=== PATIENT | female | born 1995 | race Hispanic/Latino ===

== ENCOUNTER 2020-12-27 13:46 | Observation (INO) | payer OTHER, SELFPAY ==
[~2020-12-27] VITALS: Ht 172.7 cm; Wt 88.0 kg
[2020-12-27 13:49] VITALS: BP 112/71
[2020-12-27] MEDS ORDERED: ALBUTEROL INHALER 90MCG/INH IH PRN (14:00)
[2020-12-27] MEDS ORDERED: ACETAMINOPHEN WITH CODEINE 1 TAB TAB PO ONE (14:00)
[2020-12-27] MEDS ORDERED: ACETAMINOPHEN WITH CODEINE 1 TAB TAB ONE (14:03)
[2020-12-27 14:06] LABS: HEMATOCRIT 32.8 % (42-54); MEAN CORPUSCULAR HEMOGLOBIN 23.4 pg (27.0-33.0); MEAN CORPUSCULAR HGB CONC 30.5 g/dL (32.0-36.0); MEAN CORPUSCULAR VOLUME 76.6 fL (79-99); MONOCYTES % (AUTO) 6.3 % (3.0-13.0); NEUTROPHILS % (AUTO) 67.4 % (40.0-77.0); PLATELET COUNT (AUTO) 290 K/uL (130-400); RED BLOOD CELL COUNT(AUTO) 4.28 MIL/uL (4.50-6.20); RED CELL DISTRIBUTION WIDTH 16.9 % (11.0-15.5)
[2020-12-27 14:11] LABS: ABG BASE EXCESS -1.1 mmol/L (-2.0-3.0); ABG HCO3 22.4 mmol/L (21.0-28.0); ABG OXYGEN SATURATION 87.6 % (95.0-99.0); ABG PCO2 34 mmHg (32-45)
[2020-12-27 14:13] LABS: CREATININE 0.7 mg/dL (0.5-1.5); POTASSIUM 3.5 mmol/L (3.5-5.1)
[2020-12-27 14:18] LABS: ALBUMIN 3.3 g/dL (3.5-5.0); BILIRUBIN,TOTAL 0.3 mg/dL (0.2-1.0); CRP QUANTITATIVE 79.7 mg/L (0.00-9.0); TOTAL PROTEIN, SERUM 7.5 g/dL (6.0-8.3)
[2020-12-27 14:19] LABS: APPEARANCE,URINE Turbid (CLEAR); BILIRUBIN,URINE Small (NEGATIVE); COLOR,URINE Dark Yellow (YELLOW); GLUCOSE, URINE (UA) Negative (NEGATIVE); KETONES,URINE 15 mg/dL (NEGATIVE); LEUKOCYTE ESTERASE ,URINE Moderate (NEGATIVE); NITRATE,URINE Negative (NEGATIVE); OCCULT BLOOD,URINE Large (NEGATIVE); PROTEIN,URINE POS 2+ mg/dL (NEGATIVE)
[2020-12-27 14:33] LABS: B-TYPE NATRIURETIC PEPTIDE 12 pg/mL (0-100)
[2020-12-27 14:40] LABS: BACTERIA,URINE Many /HPF (None Seen); MUCUS,URINE Moderate LPF (None Seen); SQUAMOUS EPITHELIAL CELL,UR Moderate /HPF (0-2)
[2020-12-27 14:46] LABS: BAND NEUTROPHILS % (MANUAL) 1 % (0-2); LYMPHOCYTES % (MANUAL) 28 % (22-44); MONOCYTES % (MANUAL) 9 % (2-9); SEGMENTED NEUTROPHILS % 62 % (40-70)
[2020-12-27 14:47] LABS: MAN.DIFF COMMENT-IMPRESSION MANUAL DIFFERENTIAL
[2020-12-27 14:48] LABS: PLATELET MORPHOLOGY COMMENT ADEQUATE
[2020-12-27] MEDS ORDERED: CEFTRIAXONE 1G VIAL IVP ONE (15:00)
[2020-12-27] MEDS ORDERED: CEFTRIAXONE 1G VIAL ONE ×2 (15:10→18:34)
[2020-12-27 15:48] VITALS: BP 108/44
[2020-12-27] MEDS ORDERED: ERGOCALCIFEROL (VITAMIN D2) 50,000 UNIT CAPSULE PO ONE ×2 (16:30→18:30)
[2020-12-27] MEDS ORDERED: ACETAMINOPHEN 325 MG TAB PO PRN ×2 (16:30)
[2020-12-27] MEDS ORDERED: LACTULOSE 20 GM/30 ML UDCUP PO PRN (16:30)
[2020-12-27] MEDS ORDERED: ONDANSETRON 4MG INJ IV PRN (16:30)
[2020-12-27] MEDS ORDERED: CEFTRIAXONE 1G VIAL IVP SCH (17:00)
[2020-12-27] MEDS: CEFTRIAXONE 2GM VIAL IVP SCH (18:44)
[2020-12-27] MEDS: DEXAMETHASONE SOD PHOSPHATE 4 MG/ML 1ML VIAL IVP SCH (18:44)
[2020-12-27] MEDS: DOXYCYCLINE 100MG+NS 250ML 250 ML IV SCH (18:44)
[2020-12-27 20:01] VITALS: BP 107/63
[2020-12-27] MEDS: BENZONATATE 100 MG CAPSULE PO SCH (21:24)
[2020-12-27] MEDS: FAMOTIDINE 20MG TAB PO SCH (21:24)
[2020-12-27 21:58] VITALS: BP 111/59
[2020-12-27 23:10] VITALS: BP 105/54
[2020-12-28 01:46] VITALS: BP 115/62
[2020-12-28 03:50] VITALS: BP 102/52
[2020-12-28] MEDS: DOXYCYCLINE 100MG+NS 250ML 250 ML IV SCH ×2 (05:34→15:04)
[2020-12-28 07:22] LABS: HEMATOCRIT 31.5 % (36-48); LYMPHOCYTES % (AUTO) 30.5 % (21.0-51.0); MEAN CORPUSCULAR HEMOGLOBIN 23.1 pg (27.0-33.0); MEAN CORPUSCULAR HGB CONC 30.5 g/dL (32.0-36.0); MEAN CORPUSCULAR VOLUME 75.9 fL (79-99); MONOCYTES % (AUTO) 7.8 % (3.0-13.0); NEUTROPHILS % (AUTO) 61.7 % (40.0-77.0); PLATELET COUNT (AUTO) 314 K/uL (130-400); RED BLOOD CELL COUNT(AUTO) 4.15 MIL/uL (4.00-5.50); RED CELL DISTRIBUTION WIDTH 16.7 % (11.0-15.5); WHITE BLOOD COUNT (AUTO) 1.3 K/uL (4.8-10.8)
[2020-12-28 07:43] VITALS: BP 120/75
[2020-12-28 07:43] LABS: BILIRUBIN,TOTAL 0.3 mg/dL (0.2-1.0); CREATININE 0.6 mg/dL (0.5-1.5); CRP QUANTITATIVE 67.2 mg/L (0.00-9.0); POTASSIUM 3.7 mmol/L (3.5-5.1); TOTAL PROTEIN, SERUM 7.8 g/dL (6.0-8.3)
[2020-12-28] MEDS ORDERED: ENOXAPARIN SODIUM 40 MG/0.4 ML SYRINGE SQ SCH (09:00)
[2020-12-28] MEDS: ASCORBIC ACID 500 MG TAB PO SCH (09:33)
[2020-12-28] MEDS: ZINC SULFATE 220 CAPSULE PO SCH (09:33)
[2020-12-28] MEDS: FAMOTIDINE 20MG TAB PO SCH ×2 (09:33→20:54)
[2020-12-28] MEDS: BENZONATATE 100 MG CAPSULE PO SCH ×3 (09:33→20:54)
[2020-12-28] MEDS: ENOXAPARIN SODIUM 40 MG/0.4 ML SYRINGE SQ SCH (09:36)
[2020-12-28 11:46] VITALS: BP 113/60
[2020-12-28] MEDS ORDERED: 0.9% NACL 250ML 250 ML ONE (14:53)
[2020-12-28] MEDS: DEXAMETHASONE SOD PHOSPHATE 4 MG/ML 1ML VIAL IVP SCH (15:04)
[2020-12-28 16:11] VITALS: BP 107/58
[2020-12-28] MEDS: CEFTRIAXONE 2GM VIAL IVP SCH (17:42)
[2020-12-28 19:48] VITALS: BP 105/48
[2020-12-29 00:04] VITALS: BP 115/51
[2020-12-29] MEDS: DOXYCYCLINE 100MG+NS 250ML 250 ML IV SCH (03:40)
[2020-12-29 04:17] VITALS: BP 107/67
[2020-12-29 04:19] LABS: HEMATOCRIT 31.9 % (36-48); LYMPHOCYTES % (AUTO) 25.3 % (21.0-51.0); MEAN CORPUSCULAR HEMOGLOBIN 23.3 pg (27.0-33.0); MEAN CORPUSCULAR HGB CONC 30.4 g/dL (32.0-36.0); MEAN CORPUSCULAR VOLUME 76.5 fL (79-99); MONOCYTES % (AUTO) 7.4 % (3.0-13.0); NEUTROPHILS % (AUTO) 66.5 % (40.0-77.0); PLATELET COUNT (AUTO) 350 K/uL (130-400); RED BLOOD CELL COUNT(AUTO) 4.17 MIL/uL (4.00-5.50); RED CELL DISTRIBUTION WIDTH 16.7 % (11.0-15.5); WHITE BLOOD COUNT (AUTO) 2.6 K/uL (4.8-10.8)
[2020-12-29 04:37] LABS: ALBUMIN 2.9 g/dL (3.5-5.0); BILIRUBIN,TOTAL 0.2 mg/dL (0.2-1.0); CREATININE 0.5 mg/dL (0.5-1.5); CRP QUANTITATIVE 29.5 mg/L (0.00-9.0); POTASSIUM 3.9 mmol/L (3.5-5.1); TOTAL PROTEIN, SERUM 7.4 g/dL (6.0-8.3)
[2020-12-29 04:45] LABS: BAND NEUTROPHILS % (MANUAL) 7 % (0-2); LYMPHOCYTES % (MANUAL) 20 % (22-44); MONOCYTES % (MANUAL) 6 % (2-9); REACTIVE LYMPHOCYTES 3 % (0-0); SEGMENTED NEUTROPHILS % 64 % (40-70)
[2020-12-29 04:46] LABS: MAN.DIFF COMMENT-IMPRESSION MANUAL DIFFERENTIAL; PLATELET MORPHOLOGY COMMENT ADEQUATE
[2020-12-29 07:53] VITALS: BP 110/52
[2020-12-29] MEDS ORDERED: DOXYCYCLINE 100MG+NS 250ML 250 ML IV SCH (09:00)
[2020-12-29] MEDS: ASCORBIC ACID 500 MG TAB PO SCH (09:08)
[2020-12-29] MEDS: BENZONATATE 100 MG CAPSULE PO SCH ×2 (09:08→14:29)
[2020-12-29] MEDS: ENOXAPARIN SODIUM 40 MG/0.4 ML SYRINGE SQ SCH (09:08)
[2020-12-29] MEDS: FAMOTIDINE 20MG TAB PO SCH (09:08)
[2020-12-29] MEDS: ZINC SULFATE 220 CAPSULE PO SCH (09:08)
[2020-12-29 11:42] VITALS: BP 98/55
[2020-12-29] MEDS ORDERED: ZINC220C6 PO (13:57)
[2020-12-29] MEDS ORDERED: DEXA4 PO (13:57)
[2020-12-29] MEDS ORDERED: DOXY100C5 PO (13:57)
[2020-12-29] MEDS ORDERED: ASCO500T20 PO (13:57)
[2020-12-29] MEDS ORDERED: ASPI-1197 PO (13:57)
[2020-12-29 16:11] VITALS: BP 100/60
== END 2020-12-29 15:30 | disposition home or self-care (01) ==
LOC: EDH 13:46 → EDSEX 13:46 → EDHIP 13:47 → INTOOBSV 13:47 → 2AH 12-28 01:14
PROVIDERS: ADMIT Internal Medicine; ATTEND Internal Medicine
DX: U07.1 COVID-19 (principal); J12.82 Pneumonia due to coronavirus disease 2019; I10 Essential (primary) hypertension; E11.9 Type 2 diabetes mellitus without complications; E66.9 Obesity, unspecified; D68.59 Other primary thrombophilia; N39.0 Urinary tract infection, site not specified; E78.5 Hyperlipidemia, unspecified; R09.02 Hypoxemia; Z79.82 Long term (current) use of aspirin; Z68.29 Body mass index [BMI] 29.0-29.9, adult
CPT/HCPCS: 36415 ×3; 36600; 71045; 80053 ×3; 81001; 82728 ×3; 82803; 82948; 83605; 83615 ×3; 83880; 84145; 84484; 84703; 85025 ×3; 85060; 85378 ×3; 86140 ×3; 87040 ×2; 87088; 87635; 87804 ×2; 87880; 93005; 94760 ×2; 96365; 96366 ×3; 96372 ×2; 96375; 96376; 99285; C9803; G0378 ×46; J0696 ×3; J1100 ×2; J1650 ×2; J3490 ×4; J7050

== ENCOUNTER 2024-10-19 17:47 | Emergency (ER) | payer SELFPAY ==
[~2024-10-19] VITALS: Ht 172.7 cm; Wt 122.5 kg
[~2024-10-19 17:47] MED LIST: ASCO500T20 PO; ASPI-1197 PO; DEXA4 PO; DOXY100C5 PO; ZINC220C6 PO
--- NOTE | 2024-10-19 18:15 | ERN ---
ED Note History of Present Illness Stated Complaint: HEADACHE,FEVER,BODY ACHES,SWEATS Chief Complaint: Headache Time Seen by MD: 17:49 Time Seen by Midlevel: 17:49 Dictation: The 29-year-old female with no medical history who presents to the emergency department with multiple complaints. Patient reports that Wednesday he started with a nontraumatic right-sided headache associated with fever, weakness, body aches, shortness of breath and chest tightness. Patient denies any cough or nasal congestion but reports family member with a similar flu-like symptoms. Allergies: Coded Allergies: No Known Allergies (Unverified Allergy, Unknown, 12/27/20) Home Meds Active Scripts Aspirin (Aspirin) 81 Mg Tab.chew, 81 MG PO DAILY for 10 Days, #10 TAB.CHEW Prov:LARRY CHAU NP 12/29/20 Dexamethasone (Decadron) 4 Mg Tab, 4 MG PO DAILY for 5 Days, #5 TAB Prov:LARRY CHAU NP 12/29/20 Doxycycline Hyclate (Doxycycline Hyclate) 100 Mg Capsule, 100 MG PO BID for 5 Days, #10 CAP Prov:LARRY CHAU NP 12/29/20 Ascorbic Acid (Vitamin C) 500 Mg Tablet, 500 MG PO DAILY for 15 Days, #15 TAB Prov:LARRY CHAU NP 12/29/20 Zinc Sulfate (Zinc Sulfate 220 Cap) 220 Mg Capsule, 220 MG PO DAILY for 10 Days, #10 CAP Prov:LARRY CHAU NP 12/29/20 Past Medical History Past Medical History: Asthma Additional Past Medical Hx: Obese Surgical History: None RN Note Reviewed/Agreed w/PFSH: Yes Review of System Dictation Constitutional: Negative for chills, and weight loss positive for fever Eyes: Negative for injury, pain,redness, and discharge ENT: Negative for injury,pain or swelling Cardiovascular: Negative for chest pain, palpitations, and edema Respiratory: Negative for cough, and wheezing, positive for shortness of breath Abdomen/GI: Negative for abdominal pain,vomiting, diarrhea, and constipation positive for nausea Back: Negative for injury and pain : Negative for injury, bleeding and discharge MS/Extremity: Negative for injury and deformity Skin: Negative for rash, and discoloration Neuro: Negative for headache, numbness, tingling, and seizure positive for weakness Psych: Negative for suicide ideation, homicidal ideation, and hallucinations Initial Vital Sign VS Vital Signs Date Time Temp Pulse Resp B/P (MAP) Pulse Ox O2 Delivery O2 Flow Rate FiO2 10/19/24 17:53 98.1 124 16 119/82 98 Room Air 0 10/19/24 17:53 21 Physical Exam Dictation Vital Signs reviewed General Appearance: Alert, oriented x 3, mildly distress, well developed, no urished. Head and Face: non-traumatic. Eyes: PERRL, pink conjunctivas, eyelid no trauma, anterior chamber with arcus senilis. Ears: Pinnas intact and no signs of trauma or erythema ear canals clear and no discharge TM no erythema Nose: No discharge, no bleeding. Oropharynx: Mouth normal, tongue pink. pharynx clear,no erythema, tonsils no exudates, no abscesses noted, mucous me mbrane moist Neck: Supple, non-tender, no thyromegaly, no masses, no JVD, no bruits Breast:Deferred Chest:No tenderness, no crepitus, no paradoxical movement, no retractions Lungs:Clear, well-ventilated, symmetric, no rales, no wheezing, no rhonchi, no stridor, good breath sounds bilaterally Heart: Regular rate, regular rhythm, no murmur, no gallops Vascular: no peripheral edema, Abdomen: Soft, positive bowel sounds, nondistended, no guarding, nontender, no rebound, no masses no hepatomegaly, no splenomegaly, no Bird's sign, no hernias. Rectal: Deferred Genital: Deferred Neurological: Normal speech, motor function intact, sensory function intact ,upper extremities equal in strength, lower extremities equal in strenght. Musculoskeletal: Neck nontender, full range of motion, back nontender, full range of motion, Extremities: nontender, full range of motion Skin: Color pink, dry, no turgor, no rash, no lacerations, no abrasions, no contusions. Lymphatic: Deferred Results (Laboratory/Radiology) Laboratory/Radiology Laboratory Tests Test 10/19/24 18:16 10/19/24 18:40 10/19/24 19:52 White Blood Count 2.7 K/uL (4.8-10.8) L Red Blood Count 4.37 MIL/uL (4.00-5.50) Hemoglobin 11.1 g/dL (12.0-16.0) L Hematocrit 33.8 % (36-48) L Mean Corpuscular Volume 77.3 fL (79-99) L Mean Corpuscular Hemoglobin 25.4 pg (27.0-33.0) L Mean Corpuscular Hemoglobin Concent 32.8 g/dL (32.0-36.0) Red Cell Distribution Width 15.8 % (11.0-15.5) H Platelet Count 180 K/uL (130-400) Mean Platelet Volume 9.1 fL (7.5-10.5) Immature Granulocyte % (Auto) 0.4 % (0-1) Neutrophils (%) (Auto) 68.5 % (40.0-77.0) Lymphocytes (%) (Auto) 27.0 % (21.0-51.0) Monocytes (%) (Auto) 3.7 % (3.0-13.0) Eosinophils (%) (Auto) 0.0 % (0.0-8.0) Basophils (%) (Auto) 0.4 % (0.0-5.0) Neutrophils # (Auto) 1.9 K/uL (1.8-7.7) Lymphocytes # (Auto) 0.7 K/uL (1.0-4.8) L Monocytes # (Auto) 0.1 K/uL (0.1-1.0) Eosinophils # (Auto) 0.00 K/uL (0.00-0.70) Basophils # (Auto) 0.01 K/uL (0.00-0.20) Absolute Immature Granulocyte (auto 0.01 K/uL (0-1) Segmented Neutrophils % 38 % (40-70) L Band Neutrophils % 34 % (0-2) H Lymphocytes % (Manual) 22 % (22-44) Monocytes % (Manual) 4 % (2-9) Nucleated Red Blood Cells 0.0 % (0.0-0.19) Differential Comment MANUAL DIFFERENTIAL Reactive Lymphocytes 2 % (0-0) H White Cell Morphology Comment IMMATURE GRAN 1+ Platelet Morphology Comment ADEQUATE Red Blood Cell Morphology ANISO 1+ Sodium Level 135 mmol/L (136-145) L Potassium Level 3.4 mmol/L (3.5-5.1) L Chloride Level 101 mmol/L (101-111) Carbon Dioxide Level 29 mmol/L (21-32) Blood Urea Nitrogen 8 mg/dL (7-18) Creatinine 0.6 mg/dL (0.5-1.0) Glomerular Filtration Rate Calc 125 mL/min (>90) Random Glucose 130 mg/dL (70-105) H Total Calcium 8.6 mg/dL (8.5-10.1) Magnesium Level 2.10 mg/dL (1.80-2.40) Total Creatine Kinase 65 U/L (21-232) Troponin I High Sensitivity 5 ng/L (4-50) B-Type Natriuretic Peptide 9 pg/mL (0-100) Influenza Type A Antigen Negative For Type A Influenza Type B Antigen Negative For Type B SARS-CoV-2 Antigen (Rapid) PRESUMPTIVE NEGATIVE Group A Streptococcus Rapid negative (NEGATIVE) Urine Color YELLOW (YELLOW) Urine Appearance CLOUDY (CLEAR) H Urine pH 5.5 (5.0-8.0) Urine Specific [place] 1.020 (1.001-1.031) Urine Protein 30 mg/dL (NEGATIVE) H Urine Glucose (UA) NEGATIVE mg/dL (NEGATIVE) Urine Ketones NEGATIVE mg/dL (NEGATIVE) Urine Occult Blood SMALL (NEGATIVE) H Urine Nitrate NEGATIVE (NEGATIVE) Urine Bilirubin NEGATIVE mg/dL (NEGATIVE) Urine Urobilinogen 2.0 mg/dL (0.2-1.0) H Urine Leukocyte Esterase 75 Lisa/uL (NEGATIVE) H Urine RBC 2-5 /HPF (0-1) H Urine WBC 6-10 /HPF (0-1) H Urine Squamous Epithelial Cells MOD /HPF (0-2) Urine Bacteria RARE /HPF (None Seen) Urine HCG, Qualitative NEGATIVE (NEGATIVE) REASON: right side headache, nausea ORDERING PHYSICIAN: SENA JOHN PROCEDURE: HEAD WO - CT HEAD/BRAIN W/O CONTRAST Exam Type: CT HEAD/BRAIN W/O CONTRAST Clinical Information: right side headache, nausea Comparison: None CT Dose Index (CTDI): 57.33 mGy Dose Length Product (DLP): 956.79 total mGy-cm Findings: The examination is unremarkable. Dorado-white matter junction is preserved. No intra or extra axial lesions or fluid collections are seen. Specifically, dorado and white matter are normal in signal characteristics with normal caliber of ventricles and periventricular cisterns with no evidence of intra or or extra-axial hemorrhage, lacunar infarct, or major territorial infarct, mass, or other abnormality. There are no infarcts. There are no hemorrhages. Periventricular white matter locations are preserved. The orbital contents and structures of the posterior fossa are intact. Impression: Normal CT of the head. This study was performed using dose reduction techniques to include automated exposure control and/or adjustment of the mA and/or kV according to patient size. REASON: sob ORDERING PHYSICIAN: SENA JOHN PROCEDURE: CXR1VW - CHEST 1VW Exam Type: CHEST 1VW Clinical Information: sob Comparison: None Findings: The lungs are clear of infiltrates. The heart is normal in size. The bony and soft tissue structures of the chest are unremarkable. Impression: Clear lungs. Labs Reviewed?: Yes EKG: (+) rhythm EKG Comment: Date:10/19/2024 Time:1800 Ventricular rate:114 [place] interval:147 QRS duration:99 QT/QTc:341/471 EKG interpretation: Sinus tachycardia Reviewed by ED Attending no STEMI ED Course ED Course Orders Procedure Category Date Status Time 12 Lead Ekg Tracing- EKG 10/19/24 Complete Technical 18:01 Covid19 (Sars Antigen LAB 10/19/24 Complete Rapid) 18:08 Influenza Type A & B, LAB 10/19/24 Complete Rapid 18:08 Rapid (Group A Strep) LAB 10/19/24 Complete 18:08 Cbc With Differential LAB 10/19/24 Complete 18:08 B-Type Natriuretic LAB 10/19/24 Complete Peptide 18:08 Chest 1vw RAD 10/19/24 Resulted 18:08 0.9%Nacl 1000ml (Ns PHA 10/19/24 Complete 1000ml) 18:30 Magnesium LAB 10/19/24 Complete 18:08 Creatine Kinase, Total LAB 10/19/24 Complete 18:08 Troponin I High LAB 10/19/24 Complete Sensitivity 18:08 Urinalysis Profile LAB 10/19/24 Complete 18:08 Basic Metabolic Panel LAB 10/19/24 Complete 18:08 ,Urine Test LAB 10/19/24 Complete 18:08 Acetaminophen 500mg PHA 10/19/24 Complete Tab (Tylenol 500mg T 18:30 Manual Differential LAB 10/19/24 Complete 18:16 Potassium Bicarb/Cit PHA 10/19/24 Complete Ac 25meq (K-Lyte Ta 20:00 Culture Urine SARAH 10/19/24 In Process 20:07 Ct Head/Brain W/O CT 10/19/24 Resulted Contrast 20:08 Metoclopramide 10 PHA 10/19/24 Complete Mg/2 Ml Vial (Reglan 1 20:30 Diphenhydramine Hcl PHA 10/19/24 Complete (Benadryl Inj) 20:30 Ceftriaxone 1g Vial PHA 10/19/24 Complete (Rocephine 1g Inj) 20:30 Current Medications Medications (Trade) Dose Ordered Sig/Nayla Route PRN Reason Start Time Stop Time Status Last Admin Dose Admin Acetaminophen (TYLenol 500MG TAB) 1,000 mg ONCE ONCE PO 10/19/24 18:30 10/19/24 18:32 DC 10/19/24 18:52 Ceftriaxone Sodium (ROCEphine 1G INJ) 1 gm ONCE ONCE IVPB 10/19/24 20:30 10/19/24 20:31 DC 10/19/24 20:59 Diphenhydramine HCl (BENAdryl INJ) 25 mg ONCE ONCE IV 10/19/24 20:30 10/19/24 20:31 DC 10/19/24 20:59 Metoclopramide HCl (regLAN 10MG IV) 10 mg ONCE ONCE IVP 10/19/24 20:30 10/19/24 20:31 DC 10/19/24 20:59 Potassium Bicarbonate (K-Lyte Tablet Eff 25 Meq Tablet.eff) 25 meq ONCE ONCE PO 10/19/24 20:00 10/19/24 20:01 DC 10/19/24 19:54 Sodium Chloride 1,000 ml @ 0 mls/hr ONCE ONCE IV 10/19/24 18:30 10/19/24 18:32 DC 10/19/24 18:44 Vital Signs Date Time Temp Pulse Resp B/P (MAP) Pulse Ox O2 Delivery O2 Flow Rate FiO2 10/19/24 18:53 98 18 98 Room Air* 0 21 10/19/24 17:53 98.1 124 16 119/82 98 Room Air* 0 21 10/19/24 17:53 98.1 124 16 119/82 98 Room Air 0 Medical Decision Making MDM The 29-year-old female with no medical history who presents to the emergency department with multiple complaints. Patient reports that Wednesday he started with a nontraumatic right-sided headache associated with fever, weakness, body aches, shortness of breath and chest tightness. Patient denies any cough or nasal congestion but reports family member with a similar flu-like symptoms. CBC showed no leukocytosis, mild microcytic anemia, chemistry showed mild hyponatremia, hypokalemia, negative troponin, negative BNP, urinalysis positive for leukocyte esterase, serology negative, chest x-ray showed no acute infiltrates, CT head showed no acute pathology. On arrival patient was in mild distress, diaphoretic and tachycardic. On reassessment patient is in no acute distress, heart rate is now in the 90s, patient continues neurologically intact, nontender abdomen to palpation. Reports headache improved. Patient with stable vital signs. Nontoxic appearance. Labs and imaging discussed with the patient who agrees to follow up with primary doctor. Differential diagnosis: Pneumonia, sepsis, upper respiratory infection, pneumothorax, URI Need for hospitalization: Patient does not meet criteria for hospitalization. There are no social concerns with this patient. DX & DISP Disposition: Discharge Departure Impression: Primary Impression: Headache Additional Impressions: Mild dehydration, UTI (urinary tract infection), Viral illness Condition: Stable Scripts Nitrofurantoin Monohyd/M-Cryst (Macrobid 100 mg Capsule) 100 Mg Capsule 1 CAP PO BID for 5 Days, #10 CAP 0 Refills Prov: SENA JOHN 10/19/24 Additional Instructions: Please follow up with the primary doctor in 1-2 days. Take medications as prescribed. If symptoms worsen please return to ER. FOLLOW-UP WITH PRIMARY CARE PROVIDER IN 1 TO 2 DAYS. TAKE MEDICATIONS DIRECTED HERE IN THE EMERGENCY ROOM. OKAY TO CONTINUE HOME MEDICATIONS UNLESS OTHERWISE DISCUSSED DURING YOUR VISIT IN THE EMERGENCY ROOM TODAY. RETURN TO YOUR NEAREST EMERGENCY ROOM IF SYMPTOMS WORSEN OR IF THERE IS NO IMPROVEMENT. CALL 911 IF YOU NEED IMMEDIATE ASSISTANCE. TAKE TYLENOL OR MOTRIN [id number] NEEDED AND IF NO CONTRAINDICATIONS ARE PRESENT. INCREASE ORAL HYDRATION. A WOUND CULTURE OR URINE CULTURE WAS ORDERED HERE IN THE EMERGENCY ROOM DEPARTMENT PLEASE FOLLOW-UP WITH PRIMARY CARE PROVIDER AND ADVISE THEM TO GET REPEAT PORTS FROM OUR FACILITY. IF YOU HAD ANY PILI WRAP/SPLINTS THAT WERE APPLIED HERE, PLEASE DO NOT REMOVE THEM UNTIL YOU SEE YOUR PRIMARY CARE OR SPECIALTY. Referrals: SELF,REFERRAL (PCP) Time of Disposition: 21:07 I have reviewed the case, and I agree with, Diagnosis and Plan SENA JOHN Oct 19, 2024 18:15
--- NOTE | 2024-10-19 18:18 | EKG ---
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
[2024-10-19 18:21] LABS: BASOPHILS # (AUTO) 0.01 K/uL (0.00-0.20); BASOPHILS % (AUTO) 0.4 % (0.0-5.0); HEMATOCRIT 33.8 % (36-48); IMMATURE GRANULOCYTE ABSOLUTE 0.01 K/uL (0-1); LYMPHOCYTES # (AUTO) 0.7 K/uL (1.0-4.8); MEAN CORPUSCULAR HEMOGLOBIN 25.4 pg (27.0-33.0); MEAN CORPUSCULAR HGB CONC 32.8 g/dL (32.0-36.0); MEAN CORPUSCULAR VOLUME 77.3 fL (79-99); MONOCYTES # (AUTO) 0.1 K/uL (0.1-1.0); MONOCYTES % (AUTO) 3.7 % (3.0-13.0); NEUTROPHILS # (AUTO) 1.9 K/uL (1.8-7.7); NEUTROPHILS % (AUTO) 68.5 % (40.0-77.0); PLATELET COUNT (AUTO) 180 K/uL (130-400); RED BLOOD CELL COUNT(AUTO) 4.37 MIL/uL (4.00-5.50); RED CELL DISTRIBUTION WIDTH 15.8 % (11.0-15.5); WHITE BLOOD COUNT (AUTO) 2.7 K/uL (4.8-10.8)
[2024-10-19 18:31] LABS: CREATININE 0.6 mg/dL (0.5-1.0); POTASSIUM 3.4 mmol/L (3.5-5.1)
[2024-10-19 18:40] LABS: MAGNESIUM 2.1 mg/dL (1.80-2.40)
[2024-10-19 18:43] LABS: B-TYPE NATRIURETIC PEPTIDE 9 pg/mL (0-100)
[2024-10-19] MEDS: 0.9%NACL 1000ML 1,000 ML IV ONE (18:44)
[2024-10-19] MEDS: acetaMINOPHEN 500 MG TABLET PO ONE (18:52)
[2024-10-19 19:04] LABS: RAPID GROUP A STREP negative (NEGATIVE)
[2024-10-19 19:16] LABS: INFLUENZA TYPE A Negative For Type A (NEGATIVE); INFLUENZA TYPE B Negative For Type B (NEGATIVE)
--- NOTE | 2024-10-19 19:18 | HMCIMG ---
Exam Type: CHEST 1VW Clinical Information: sob Comparison: None Findings: The lungs are clear of infiltrates. The heart is normal in size. The bony and soft tissue structures of the chest are unremarkable. Impression: Clear lungs.
[2024-10-19 19:19] LABS: BAND NEUTROPHILS % (MANUAL) 34 % (0-2); LYMPHOCYTES % (MANUAL) 22 % (22-44); MONOCYTES % (MANUAL) 4 % (2-9); REACTIVE LYMPHOCYTES 2 % (0-0); SEGMENTED NEUTROPHILS % 38 % (40-70); TOTAL CELLS COUNTED 100
[2024-10-19 19:21] LABS: COVID19 (SARS ANTIGEN RAPID) PRESUMPTIVE NEGATIVE (NEGATIVE)
[2024-10-19 19:21] LABS: MAN.DIFF COMMENT-IMPRESSION MANUAL DIFFERENTIAL; PLATELET MORPHOLOGY COMMENT ADEQUATE; WBC MORPHOLOGY IMMATURE GRAN 1+
[2024-10-19] MEDS: PoTASSium BIcarbonate/CIT AC 25 MEQ TABLET.EFF PO ONE (19:54)
[2024-10-19 20:05] LABS: APPEARANCE,URINE CLOUDY (CLEAR); BILIRUBIN,URINE NEGATIVE (NEGATIVE); COLOR,URINE YELLOW (YELLOW); GLUCOSE, URINE (UA) NEGATIVE (NEGATIVE); KETONES,URINE NEGATIVE (NEGATIVE); LEUKOCYTE ESTERASE ,URINE 75 Leu/uL (NEGATIVE); NITRATE,URINE NEGATIVE (NEGATIVE); OCCULT BLOOD,URINE SMALL (NEGATIVE); PH,URINE 5.5 (5.0-8.0); PROTEIN,URINE 30 mg/dL (NEGATIVE)
[2024-10-19 20:07] LABS: ADD UA MICROSCOPIC YES; HCG,QUALITATIVE URINE NEGATIVE (NEGATIVE)
[2024-10-19 20:11] LABS: BACTERIA,URINE RARE /HPF (None Seen); MUCUS,URINE RARE LPF (None Seen); SQUAMOUS EPITHELIAL CELL,UR MOD /HPF (0-2)
--- NOTE | 2024-10-19 20:55 | HMCIMG ---
Exam Type: CT HEAD/BRAIN W/O CONTRAST Clinical Information: right side headache, nausea Comparison: None CT Dose Index (CTDI): 57.33 mGy Dose Length Product (DLP): 956.79 total mGy-cm Findings: The examination is unremarkable. Dorado-white matter junction is preserved. No intra or extra axial lesions or fluid collections are seen. Specifically, dorado and white matter are normal in signal characteristics with normal caliber of ventricles and periventricular cisterns with no evidence of intra or or extra-axial hemorrhage, lacunar infarct, or major territorial infarct, mass, or other abnormality. There are no infarcts. There are no hemorrhages. Periventricular white matter locations are preserved. The orbital contents and structures of the posterior fossa are intact. Impression: Normal CT of the head. This study was performed using dose reduction techniques to include automated exposure control and/or adjustment of the mA and/or kV according to patient size.
[2024-10-19] MEDS: cefTRIAXone 1G VIAL IVPB ONE (20:59)
[2024-10-19] MEDS: metoCLOPRAmide 10 MG/2 ML VIAL IVP ONE (20:59)
[2024-10-19] MEDS: DiphenhydrAMINE HCL 50 MG/ML VIAL IV ONE (20:59)
[2024-10-19] MEDS ORDERED: NITR100C4 PO (21:08)
[2024-10-19 22:15] VITALS: BP 102/61; PULSE 81; RESP 18; TEMP 98.1; O2SAT 98
== END 2024-10-19 22:25 | disposition home or self-care (01) ==
LOC: EDH 17:47
DX: R51.9 Headache, unspecified (principal); E86.0 Dehydration; N39.0 Urinary tract infection, site not specified; B34.9 Viral infection, unspecified; E66.9 Obesity, unspecified; J45.909 Unspecified asthma, uncomplicated; Z79.52 Long term (current) use of systemic steroids; Z79.82 Long term (current) use of aspirin; Z68.41 Body mass index [BMI] 40.0-44.9, adult; Z20.822 Contact with and (suspected) exposure to COVID-19
CPT/HCPCS: 99285; 96374; 70450; 96375; 71045; 96361; 87426; 82550; 83735; 84484; 80048; 83880; 85025; 87086; 87880; 87804 ×2; 81001; 81025; 36415; 93005; J1200; J7030; J0696; J2765